=== PATIENT | female | born 1975 | race Caucasian/White ===

== ENCOUNTER 2016-07-10 06:31 | Inpatient (IN) | payer OTHER ==
[~2016-07-10] VITALS: Ht 157.5 cm; Wt 46.0 kg
[2016-07-10] MEDS ORDERED: FENTANYL PF 250 MCG/5ML ONE (07:20)
[2016-07-10] MEDS ORDERED: MIDAZOLAM 1 MG/ML, 5ML ONE (07:20)
[2016-07-10] MEDS ORDERED: SUMA100T3 PO (07:31)
[2016-07-10] MEDS ORDERED: GABA100C8 PO (07:33)
[2016-07-10] MEDS ORDERED: DIAZ5TAB PO (07:34)
[2016-07-10] MEDS ORDERED: HYOS0.1261 SL (07:36)
[2016-07-10] MEDS ORDERED: TOPI200T25 PO (07:37)
[2016-07-10] MEDS ORDERED: FLUD5POW PO (07:40)
[2016-07-10] MEDS ORDERED: MIDO2.5T PO (07:41)
[2016-07-10] MEDS ORDERED: BUPR-173 PO (07:42)
[2016-07-10] MEDS ORDERED: LEVO100V PO (07:45)
[2016-07-10] MEDS ORDERED: vit d PO (07:46)
[2016-07-10] MEDS ORDERED: multivit PO (07:47)
[2016-07-10 07:55] VITALS: BP 112/75
[2016-07-10] MEDS ORDERED: DEXAMETHASONE 4 MG/ML, 1ML ONE (08:00)
[2016-07-10] MEDS ORDERED: PROTAMINE SULFATE 10 MG/ML, 5ML ONE (08:00)
[2016-07-10] MEDS ORDERED: LIDOCAINE 2%, 20ML ONE (08:10)
[2016-07-10] MEDS ORDERED: CEFAZOLIN PMX 1GM/50ML 50 ML ONE (08:10)
[2016-07-10] MEDS ORDERED: CEFAZOLIN 1,000 MG ONE (08:10)
[2016-07-10] MEDS ORDERED: AMINOCAPROIC ACID 250 MG/ML, 20ML ONE ×2 (10:20→16:05)
[2016-07-10] MEDS ORDERED: CEFUROXIME 1.5 GM in SODIUM CHLORIDE 0.9% 50 ML IV SCH (11:30)
[2016-07-10] MEDS ORDERED: VANCOMYCIN PMX 1GM/200ML 200 ML IV ONE (11:30)
[2016-07-10] MEDS ORDERED: THROMBIN 5,000 UNIT VIAL TP ONE ×2 (12:07→13:00)
[2016-07-10] MEDS ORDERED: SODIUM BICARBONATE 1 MEQ/ML, 50ML VIAL ONE ×2 (12:26→16:06)
[2016-07-10] MEDS ORDERED: MIDAZOLAM 10MG/2 ML ONE (13:04)
[2016-07-10] MEDS ORDERED: FENTANYL PF 1000 MCG/20ML ONE (13:04)
[2016-07-10] MEDS ORDERED: SODIUM CHLORIDE 0.9% IV ONE (13:30)
[2016-07-10] MEDS ORDERED: POTASSIUM PHOSPHATE IV ONE (13:30)
[2016-07-10] MEDS ORDERED: NOVOSEVEN RT (FACTOR VIIA) RECOMB 1,000 MCG ONE (14:15)
[2016-07-10] MEDS ORDERED: SODIUM CHLORIDE 0.9% 1,000 ML IV ONE (15:36)
[2016-07-10] MEDS ORDERED: PHENYLEPHRINE 10 MG in SODIUM CHLORIDE 0.9% 249 ML IV PRN (15:36)
[2016-07-10] MEDS ORDERED: DOBUTAMINE 250 MG in SODIUM CHLORIDE 0.9% 230 ML IV PRN (15:36)
[2016-07-10] MEDS ORDERED: REGULAR INSULIN 62.5 UNITS in SODIUM CHLORIDE 0.9% 249.375 ML IV PRN (15:36)
[2016-07-10] MEDS ORDERED: NITROGLYCERIN/D5W PMX 250 ML IV PRN (15:36)
[2016-07-10] MEDS ORDERED: SODIUM CHLORIDE 0.9% 1,000 ML IV PRN (15:36)
[2016-07-10 15:45] VITALS: BP 166/100
[2016-07-10] MEDS ORDERED: PROCHLORPERAZINE 5 MG/ML, 2ML IVPush PRN (16:00)
[2016-07-10] MEDS: KSCALE TO 4.5 IV SCH ×2 (16:00→22:00)
[2016-07-10] MEDS ORDERED: ACETAMINOPHEN 650 MG SUPP PR PRN (16:00)
[2016-07-10] MEDS ORDERED: BISACODYL 5 MG EC TABLET PO PRN (16:00)
[2016-07-10] MEDS ORDERED: CEFUROXIME 1.5 GM in SODIUM CHLORIDE 0.9% 50 ML IVPB SCH (16:00)
[2016-07-10] MEDS ORDERED: ACETAMINOPHEN 325 MG TABLET PO PRN (16:00)
[2016-07-10] MEDS ORDERED: EPINEPHRINE 2 MG in SODIUM CHLORIDE 0.9% 248 ML IV PRN (16:00)
[2016-07-10] MEDS ORDERED: GLUCAGON 1 MG IM PRN (16:00)
[2016-07-10] MEDS ORDERED: INSULIN ASPART 100 UNITS/ML, PEN SQ-INSULIN PRN (16:00)
[2016-07-10] MEDS ORDERED: VANCOMYCIN 700 MG in SODIUM CHLORIDE 0.9% 100 ML IVPB SCH (16:00)
[2016-07-10] MEDS ORDERED: LACTATED RINGERS 500 ML IVBOLUS PRN (16:00)
[2016-07-10] MEDS ORDERED: DEXTROSE 4 GM TAB.CHEW PO PRN (16:00)
[2016-07-10] MEDS ORDERED: MIDAZOLAM 1 MG/ML, 5ML IVPush PRN (16:00)
[2016-07-10] MEDS ORDERED: SODIUM BICARB 8.4%, 50ML SYRINGE IV PRN (16:00)
[2016-07-10] MEDS ORDERED: MEPERIDINE/PF 25MG/0.5ML IVPush PRN (16:00)
[2016-07-10] MEDS ORDERED: VANCOMYCIN 700 MG in SODIUM CHLORIDE 0.9% 250 ML IVPB SCH (16:00)
[2016-07-10] MEDS ORDERED: PROTAMINE SULFATE 10 MG/ML, 25ML ONE (16:04)
[2016-07-10] MEDS ORDERED: SODIUM BICARB 8.4%, 50ML SYRINGE ONE (16:04)
[2016-07-10] MEDS ORDERED: CALCIUM CHLORIDE 10%, 10ML SYR ONE (16:04)
[2016-07-10] MEDS ORDERED: ALBUMIN HUMAN 25% 50 ML ONE (16:06)
[2016-07-10] MEDS ORDERED: HEPARIN 1,000 UNITS/ML, 10ML ONE (16:06)
[2016-07-10] MEDS ORDERED: HEPARIN 1,000 UNITS/ML, 30ML ONE (16:06)
[2016-07-10] MEDS ORDERED: PAPAVERINE 30 MG/ML, 2ML ONE (16:06)
[2016-07-10] MEDS: MAGNESIUM SULFATE 1 GM in SODIUM CHLORIDE 0.9% 50 ML IVPB SCH (16:14)
[2016-07-10] MEDS: CLEVIDIPINE 50 ML IV PRN ×2 (16:15→19:44)
[2016-07-10 16:23] LABS: HEMOGLOBIN 12.5 g/dL (11.7-16.4)
[2016-07-10 16:24] LABS: ABG COLLECTION SITE ARTERIAL LINE
[2016-07-10] MEDS ORDERED: NOVOSEVEN RT (FACTOR VIIA) RECOMB 1,000 MCG IVPush SCH ×2 (16:30→18:30)
[2016-07-10 16:34] LABS: BLOOD UREA NITROGEN 14 mg/dL (7-18)
[2016-07-10] MEDS: DEXTROSE 50%, 50ML SYRINGE IVPush PRN (16:39)
[2016-07-10 16:43] LABS: ASPARTATE AMINO TRANSFERASE 117 U/L (15-37)
[2016-07-10] MEDS ORDERED: PHARMACOKINETIC MONITORING MC PRN (17:00)
[2016-07-10] MEDS ORDERED: PHARMACOKINETIC CONSULTATION MC ONE (17:00)
[2016-07-10] MEDS ORDERED: VANCOMYCIN PER PHARMACY MC PRN (17:00)
[2016-07-10] MEDS: CEFUROXIME 1.5 GM in SODIUM CHLORIDE 0.9% 50 ML IV SCH ×2 (17:30→22:43)
[2016-07-10] MEDS ORDERED: LIDOCAINE-MPF 1%, 2ML ENDO PRN (17:30)
[2016-07-10] MEDS: morphine SULFATE 10 MG/ML, 1ML IVPush PRN ×3 (18:42→21:12)
[2016-07-10] MEDS ORDERED: POTASSIUM CHLORIDE PMX 100 ML IV ONE (19:00)
[2016-07-10] MEDS ORDERED: FUROSEMIDE 20 MG/2 ML IV PRN (19:30)
[2016-07-10] MEDS: DEXMEDETOMIDINE 200 MCG in SODIUM CHLORIDE 0.9% 48 ML IV PRN (19:43)
[2016-07-10] MEDS: DOCUSATE 100 MG CAPSULE PO SCH (21:00)
[2016-07-10] MEDS: SODIUM CHLORIDE FLUSH 10ML SYR IVF SCH (21:05)
[2016-07-10] MEDS: MUPIROCIN OINT 2%, 22GM NAS SCH (22:08)
[2016-07-10 22:38] LABS: HEMOGLOBIN 15.5 g/dL (11.7-16.4)
[2016-07-10] MEDS ORDERED: POTASSIUM CHLORIDE 30 MEQ in SODIUM CHLORIDE 0.9% 100 ML IV ONE (23:00)
[2016-07-10] MEDS: VANCOMYCIN PMX 1GM/200ML 200 ML IV SCH (23:18)
[2016-07-11] MEDS: DEXMEDETOMIDINE 200 MCG in SODIUM CHLORIDE 0.9% 48 ML IV PRN (00:48)
[2016-07-11] MEDS: morphine SULFATE 10 MG/ML, 1ML IVPush PRN ×5 (01:56→23:59)
[2016-07-11] MEDS: KSCALE TO 4.5 IV SCH ×3 (04:00→16:00)
[2016-07-11 04:26] LABS: ABG COLLECTION SITE ARTERIAL LINE; HEMOGLOBIN 14.3 g/dL (11.7-16.4)
[2016-07-11] MEDS: ONDANSETRON 2MG/ML, 2ML IVPush PRN ×2 (04:31→20:44)
[2016-07-11] MEDS: HYDROcodone/APAP 10/325 MG TABLET PO PRN ×2 (04:31→14:21)
[2016-07-11 04:38] LABS: BLOOD UREA NITROGEN 16 mg/dL (7-18)
[2016-07-11] MEDS ORDERED: POTASSIUM CHLORIDE 30 MEQ in SODIUM CHLORIDE 0.9% 100 ML IV ONE (05:00)
[2016-07-11] MEDS ORDERED: FUROSEMIDE 40 MG/4 ML IV ONE (07:30)
[2016-07-11] MEDS: DOCUSATE 100 MG CAPSULE PO SCH ×2 (09:00→20:44)
[2016-07-11] MEDS: SODIUM CHLORIDE FLUSH 10ML SYR IVF SCH ×2 (09:19→20:45)
[2016-07-11] MEDS: PANTOPRAZOLE 40 MG IV IVPush SCH (09:20)
[2016-07-11] MEDS: MUPIROCIN OINT 2%, 22GM NAS SCH ×2 (09:20→20:45)
[2016-07-11] MEDS: CEFUROXIME 1.5 GM in SODIUM CHLORIDE 0.9% 50 ML IV SCH ×2 (09:21→18:11)
[2016-07-11 09:30] LABS: HEMOGLOBIN 14.6 g/dL (11.7-16.4)
[2016-07-11] MEDS ORDERED: [UNRECOGNIZED DRUG - REMARK] MC PRN (10:30)
[2016-07-11] MEDS ORDERED: HEPARIN 25,000 UNITS/500ML PMX 500 ML IV PRN (10:30)
[2016-07-11] MEDS ORDERED: POTASSIUM CHLORIDE PMX 100 ML IV ONE ×2 (11:00→11:30)
[2016-07-11] MEDS: VANCOMYCIN PMX 1GM/200ML 200 ML IV SCH ×2 (11:11→23:19)
[2016-07-11] MEDS: HEPARIN 25,000 UNITS/500ML PMX 500 ML IV PRN (15:08)
[2016-07-11] MEDS: MAGNESIUM SULFATE 1 GM in SODIUM CHLORIDE 0.9% 50 ML IVPB SCH (16:59)
[2016-07-11] MEDS: CHLORHEXIDINE MOUTHWASH 15 ML UDC MM SCH (16:59)
[2016-07-11] MEDS: OXYcodone IR 5MG TABLET PO PRN ×3 (17:35→23:37)
[2016-07-11] MEDS: DIPHENHYDRAMINE 25 MG CAPSULE PO PRN (23:37)
[2016-07-12] MEDS: CEFUROXIME 1.5 GM in SODIUM CHLORIDE 0.9% 50 ML IV SCH ×3 (01:19→17:55)
[2016-07-12] MEDS: DIPHENHYDRAMINE 25 MG CAPSULE PO PRN (01:21)
[2016-07-12] MEDS: OXYcodone IR 5MG TABLET PO PRN ×5 (03:52→20:57)
[2016-07-12] MEDS: CHLORHEXIDINE MOUTHWASH 15 ML UDC MM SCH ×2 (03:53→16:32)
[2016-07-12 04:52] LABS: ABG COLLECTION SITE RIGHT RADIAL; COLLATERAL CIRCULATION TESTING NORMAL
[2016-07-12 07:19] LABS: HEMOGLOBIN 12.6 g/dL (11.7-16.4)
[2016-07-12 07:25] LABS: ASPARTATE AMINO TRANSFERASE 197 U/L (15-37); BLOOD UREA NITROGEN 17 mg/dL (7-18)
[2016-07-12] MEDS: DOCUSATE 100 MG CAPSULE PO SCH ×2 (09:24→20:56)
[2016-07-12] MEDS: PANTOPRAZOLE 40 MG IV IVPush SCH (09:24)
[2016-07-12] MEDS: MUPIROCIN OINT 2%, 22GM NAS SCH ×2 (09:32→20:57)
[2016-07-12] MEDS: SODIUM CHLORIDE FLUSH 10ML SYR IVF SCH ×2 (09:52→20:56)
[2016-07-12] MEDS: KETOROLAC 30 MG/1 ML IM PRN ×3 (09:53→23:22)
[2016-07-12] MEDS: morphine SULFATE 10 MG/ML, 1ML IVPush PRN ×2 (11:06→17:37)
[2016-07-12] MEDS: VANCOMYCIN PMX 1GM/200ML 200 ML IV SCH ×2 (11:09→23:29)
[2016-07-12] MEDS ORDERED: LEVO88CA2 PO (15:21)
[2016-07-12] MEDS: MAGNESIUM SULFATE 1 GM in SODIUM CHLORIDE 0.9% 50 ML IVPB SCH (16:32)
[2016-07-12] MEDS: HEPARIN 5,000 UNITS/ML, 1ML IV PRN (21:36)
[2016-07-13] MEDS: CEFUROXIME 1.5 GM in SODIUM CHLORIDE 0.9% 50 ML IV SCH ×3 (01:44→17:56)
[2016-07-13] MEDS: HEPARIN 25,000 UNITS/500ML PMX 500 ML IV PRN (01:52)
[2016-07-13] MEDS: OXYcodone IR 5MG TABLET PO PRN ×5 (03:14→20:21)
[2016-07-13] MEDS: CHLORHEXIDINE MOUTHWASH 15 ML UDC MM SCH (03:21)
[2016-07-13 04:17] LABS: BLOOD UREA NITROGEN 7 mg/dL (7-18)
[2016-07-13 04:21] LABS: ASPARTATE AMINO TRANSFERASE 85 U/L (15-37)
[2016-07-13 04:28] LABS: HEMOGLOBIN 12.9 g/dL (11.7-16.4)
[2016-07-13] MEDS: HEPARIN 5,000 UNITS/ML, 1ML IV PRN ×2 (04:58→11:04)
[2016-07-13] MEDS ORDERED: POTASSIUM CHLORIDE 20 MEQ TAB.ER.PRT PO ONE ×2 (07:30→08:30)
[2016-07-13] MEDS: DOCUSATE 100 MG CAPSULE PO SCH ×2 (07:36→20:25)
[2016-07-13] MEDS: KETOROLAC 30 MG/1 ML IV PRN ×3 (07:37→21:53)
[2016-07-13] MEDS: PANTOPRAZOLE 40 MG IV IVPush SCH (07:37)
[2016-07-13] MEDS: MUPIROCIN OINT 2%, 22GM NAS SCH ×2 (07:37→20:25)
[2016-07-13] MEDS: SODIUM CHLORIDE FLUSH 10ML SYR IVF SCH ×2 (07:38→20:25)
[2016-07-13] MEDS ORDERED: CLOPIDOGREL 75 MG TABLET PO ONE (08:30)
[2016-07-13] MEDS ORDERED: WARFARIN HIGH DOSE PROTOCOL XX PRN (09:00)
[2016-07-13] MEDS: BUPROPION 75 MG TABLET PO SCH (09:30)
[2016-07-13] MEDS: TOPIRAMATE 100 MG TABLET PO SCH (09:30)
[2016-07-13] MEDS ORDERED: LEVOTHYROXINE 175 MCG TABLET PO SCH (09:30)
[2016-07-13] MEDS: CHOLECALCIFEROL 400 UNITS TABLET PO SCH (09:30)
[2016-07-13] MEDS ORDERED: DIAZEPAM 5 MG TABLET PO PRN (09:30)
[2016-07-13] MEDS: GABAPENTIN 300 MG CAPSULE PO SCH ×2 (09:30→20:24)
[2016-07-13] MEDS: VANCOMYCIN PMX 1GM/200ML 200 ML IV SCH ×2 (11:08→23:01)
[2016-07-13] MEDS ORDERED: WARFARIN 10 MG TABLET PO-COUM ONE (13:00)
[2016-07-14 00:13] LABS: HEMOGLOBIN 11.8 g/dL (11.7-16.4)
[2016-07-14] MEDS: HEPARIN 25,000 UNITS/500ML PMX 500 ML IV PRN ×2 (00:38→20:27)
[2016-07-14] MEDS: CEFUROXIME 1.5 GM in SODIUM CHLORIDE 0.9% 50 ML IV SCH ×3 (00:39→17:53)
[2016-07-14] MEDS: KETOROLAC 30 MG/1 ML IV PRN (04:21)
[2016-07-14 04:59] LABS: HEMOGLOBIN 11.3 g/dL (11.7-16.4)
[2016-07-14 05:00] LABS: DIFF TOTAL CELLS COUNTED 100 CELL DIFF
[2016-07-14 05:01] LABS: BLOOD UREA NITROGEN 3 mg/dL (7-18)
[2016-07-14 05:47] LABS: VERIFY COUNTS? YES
[2016-07-14] MEDS ORDERED: MAGNESIUM SULFATE PMX 4GM/100M 100 ML IV ONE (07:00)
[2016-07-14] MEDS ORDERED: POTASSIUM CHLORIDE 20 MEQ TAB.ER.PRT PO ONE (07:00)
[2016-07-14] MEDS: OXYcodone IR 5MG TABLET PO PRN ×2 (08:07→17:51)
[2016-07-14] MEDS: SODIUM CHLORIDE FLUSH 10ML SYR IVF SCH ×2 (08:10→18:25)
[2016-07-14] MEDS: TIROSINT HOMEMEDPO SCH (09:00)
[2016-07-14] MEDS: DOCUSATE 100 MG CAPSULE PO SCH ×2 (09:13→20:22)
[2016-07-14] MEDS: GABAPENTIN 300 MG CAPSULE PO SCH ×2 (09:21→20:22)
[2016-07-14] MEDS: CLOPIDOGREL 75 MG TABLET PO SCH (09:21)
[2016-07-14] MEDS: CHOLECALCIFEROL 400 UNITS TABLET PO SCH (09:22)
[2016-07-14] MEDS: TOPIRAMATE 100 MG TABLET PO SCH (09:22)
[2016-07-14] MEDS: BUPROPION 75 MG TABLET PO SCH (09:22)
[2016-07-14] MEDS ORDERED: MICROFIBRILLAR COLLAGEN 0.5GM/PACK TP ONE (11:30)
[2016-07-14] MEDS: MUPIROCIN OINT 2%, 22GM NAS SCH ×2 (11:52→20:23)
[2016-07-14 12:28] LABS: HEMOGLOBIN 9.2 g/dL (11.7-16.4)
[2016-07-14] MEDS ORDERED: NOREPINEPHRINE 4 MG in SODIUM CHLORIDE 0.9% 246 ML IV PRN (12:30)
[2016-07-14] MEDS ORDERED: SODIUM CHLORIDE 0.9% 1,000ML IVBOLUS ONE (12:30)
[2016-07-14 14:02] VITALS: BP 118/75
[2016-07-14 14:15] VITALS: BP 124/68
[2016-07-14 14:30] VITALS: BP 139/78
[2016-07-14 15:30] VITALS: BP 134/75
[2016-07-14 16:00] VITALS: BP 130/86
[2016-07-14] MEDS: VANCOMYCIN PMX 1GM/200ML 200 ML IV SCH (16:53)
[2016-07-14] MEDS ORDERED: WARFARIN 5 MG TABLET PO-COUM ONE (18:00)
[2016-07-14] MEDS ORDERED: WARFARIN 7.5 MG TABLET PO-COUM ONE (18:00)
[2016-07-14 19:04] LABS: HEMOGLOBIN 11.4 g/dL (11.7-16.4)
[2016-07-15] MEDS: CEFUROXIME 1.5 GM in SODIUM CHLORIDE 0.9% 50 ML IV SCH ×2 (00:18→09:41)
[2016-07-15] MEDS: VANCOMYCIN PMX 1GM/200ML 200 ML IV SCH (00:18)
[2016-07-15] MEDS: OXYcodone IR 5MG TABLET PO PRN ×4 (04:01→21:19)
[2016-07-15 07:05] LABS: HEMOGLOBIN 10.1 g/dL (11.7-16.4)
[2016-07-15 07:17] LABS: BLOOD UREA NITROGEN 3 mg/dL (7-18)
[2016-07-15] MEDS: HEPARIN 5,000 UNITS/ML, 1ML IV PRN (08:12)
[2016-07-15] MEDS: TIROSINT HOMEMEDPO SCH (08:30)
[2016-07-15] MEDS: SODIUM CHLORIDE FLUSH 10ML SYR IVF SCH ×2 (08:31→21:19)
[2016-07-15] MEDS: MUPIROCIN OINT 2%, 22GM NAS SCH (08:31)
[2016-07-15] MEDS: CLOPIDOGREL 75 MG TABLET PO SCH (08:32)
[2016-07-15] MEDS: GABAPENTIN 300 MG CAPSULE PO SCH ×2 (08:32→21:43)
[2016-07-15] MEDS: DOCUSATE 100 MG CAPSULE PO SCH ×2 (08:32→21:43)
[2016-07-15] MEDS: CHOLECALCIFEROL 400 UNITS TABLET PO SCH (08:33)
[2016-07-15] MEDS: BUPROPION 75 MG TABLET PO SCH (08:33)
[2016-07-15] MEDS: TOPIRAMATE 100 MG TABLET PO SCH (08:33)
[2016-07-15] MEDS ORDERED: LIDOCAINE 1%, 50ML ONE (13:43)
[2016-07-15] MEDS: DIPHENHYDRAMINE 25 MG CAPSULE PO PRN (14:55)
[2016-07-15] MEDS ORDERED: HEPARIN 25,000 UNITS/500ML PMX 500 ML IV PRN (15:00)
[2016-07-15] MEDS: BISACODYL 10 MG SUPP PR PRN (19:28)
[2016-07-16] MEDS: DIPHENHYDRAMINE 25 MG CAPSULE PO PRN ×2 (00:38→21:20)
[2016-07-16] MEDS: OXYcodone IR 5MG TABLET PO PRN ×3 (04:21→17:26)
[2016-07-16 04:56] LABS: BLOOD UREA NITROGEN 5 mg/dL (7-18)
[2016-07-16] MEDS: TIROSINT HOMEMEDPO SCH (06:00)
[2016-07-16] MEDS: CLOPIDOGREL 75 MG TABLET PO SCH (09:07)
[2016-07-16] MEDS: CHOLECALCIFEROL 400 UNITS TABLET PO SCH (09:07)
[2016-07-16] MEDS: DOCUSATE 100 MG CAPSULE PO SCH ×2 (09:08→21:20)
[2016-07-16] MEDS: TOPIRAMATE 100 MG TABLET PO SCH (09:08)
[2016-07-16] MEDS: GABAPENTIN 300 MG CAPSULE PO SCH ×2 (09:08→21:20)
[2016-07-16] MEDS: BUPROPION 75 MG TABLET PO SCH (09:08)
[2016-07-16] MEDS: SODIUM CHLORIDE FLUSH 10ML SYR IVF SCH ×2 (09:09→21:19)
[2016-07-16 11:00] VITALS: BP 132/86
[2016-07-16] MEDS ORDERED: HYOSCYAMINE 0.125 MG TAB.SUBL SL PRN (12:00)
[2016-07-16] MEDS ORDERED: SUMATRIPTAN 50 MG TABLET PO PRN (12:00)
[2016-07-16 16:09] VITALS: BP 127/83
[2016-07-16] MEDS ORDERED: WARFARIN 2.5 MG TABLET PO-COUM ONE (18:00)
[2016-07-16 19:40] VITALS: BP 112/73
[2016-07-17 01:57] VITALS: BP 115/77
[2016-07-17] MEDS: OXYcodone IR 5MG TABLET PO PRN ×3 (04:49→21:56)
[2016-07-17 05:48] LABS: BLOOD UREA NITROGEN 8 mg/dL (7-18)
[2016-07-17] MEDS: TIROSINT HOMEMEDPO SCH (06:00)
[2016-07-17 07:22] VITALS: BP 149/75
[2016-07-17] MEDS: CHOLECALCIFEROL 400 UNITS TABLET PO SCH (08:28)
[2016-07-17] MEDS: TOPIRAMATE 100 MG TABLET PO SCH (08:28)
[2016-07-17] MEDS: CLOPIDOGREL 75 MG TABLET PO SCH (08:28)
[2016-07-17] MEDS: MULTIVITAMIN 1 TABLET PO SCH (08:28)
[2016-07-17] MEDS: DOCUSATE 100 MG CAPSULE PO SCH ×2 (08:29→21:00)
[2016-07-17] MEDS: FLUDROCORTISONE 0.1 MG TABLET PO SCH (08:31)
[2016-07-17] MEDS: GABAPENTIN 300 MG CAPSULE PO SCH ×2 (08:31→21:00)
[2016-07-17] MEDS: MIDODRINE 2.5 MG TABLET PO SCH (08:31)
[2016-07-17] MEDS: BUPROPION 75 MG TABLET PO SCH (08:32)
[2016-07-17] MEDS: SODIUM CHLORIDE FLUSH 10ML SYR IVF SCH ×2 (08:35→21:56)
[2016-07-17 09:56] VITALS: BP 117/77
[2016-07-17] MEDS ORDERED: KETOROLAC 30 MG/1 ML IVPush ONE (10:00)
[2016-07-17 13:53] VITALS: BP 113/69
[2016-07-17] MEDS: BISACODYL 10 MG SUPP PR PRN (17:39)
[2016-07-17] MEDS ORDERED: WARFARIN 2.5 MG TABLET PO-COUM ONE (18:00)
[2016-07-17 20:00] VITALS: BP 117/73
[2016-07-17] MEDS: ONDANSETRON 2MG/ML, 2ML IVPush PRN (21:56)
[2016-07-18 01:41] VITALS: BP 113/70
[2016-07-18] MEDS: OXYcodone IR 5MG TABLET PO PRN ×2 (03:21→09:43)
[2016-07-18] MEDS: TIROSINT HOMEMEDPO SCH (05:14)
[2016-07-18 06:23] LABS: BLOOD UREA NITROGEN 8 mg/dL (7-18)
[2016-07-18 07:08] VITALS: BP 105/70
[2016-07-18] MEDS: MULTIVITAMIN 1 TABLET PO SCH (09:39)
[2016-07-18] MEDS: CHOLECALCIFEROL 400 UNITS TABLET PO SCH (09:39)
[2016-07-18] MEDS: DOCUSATE 100 MG CAPSULE PO SCH ×2 (09:40→20:45)
[2016-07-18] MEDS: SODIUM CHLORIDE FLUSH 10ML SYR IVF SCH ×2 (09:40→20:47)
[2016-07-18] MEDS: FLUDROCORTISONE 0.1 MG TABLET PO SCH (09:41)
[2016-07-18] MEDS: MIDODRINE 2.5 MG TABLET PO SCH ×2 (09:41→12:22)
[2016-07-18] MEDS: GABAPENTIN 300 MG CAPSULE PO SCH ×2 (09:41→20:45)
[2016-07-18] MEDS: CLOPIDOGREL 75 MG TABLET PO SCH (09:41)
[2016-07-18] MEDS: BUPROPION 75 MG TABLET PO SCH (09:42)
[2016-07-18] MEDS: TOPIRAMATE 100 MG TABLET PO SCH (09:42)
[2016-07-18] MEDS: ONDANSETRON 2MG/ML, 2ML IVPush PRN (09:43)
[2016-07-18 14:02] VITALS: BP 123/84
[2016-07-18] MEDS ORDERED: WARFARIN 7.5 MG TABLET PO-COUM ONE (18:00)
[2016-07-18] MEDS ORDERED: WARFARIN 3 MG TABLET PO-COUM ONE (18:00)
[2016-07-18 20:30] VITALS: BP 104/69
[2016-07-18] MEDS: DIPHENHYDRAMINE 25 MG CAPSULE PO PRN (22:11)
[2016-07-19 02:10] VITALS: BP 112/75
[2016-07-19 06:12] LABS: BLOOD UREA NITROGEN 10 mg/dL (7-18)
[2016-07-19 06:58] VITALS: BP 120/72
[2016-07-19] MEDS: TIROSINT HOMEMEDPO SCH (08:00)
[2016-07-19] MEDS: SODIUM CHLORIDE FLUSH 10ML SYR IVF SCH (09:00)
[2016-07-19] MEDS: CHOLECALCIFEROL 400 UNITS TABLET PO SCH (09:43)
[2016-07-19] MEDS: FLUDROCORTISONE 0.1 MG TABLET PO SCH (09:44)
[2016-07-19] MEDS: CLOPIDOGREL 75 MG TABLET PO SCH (09:44)
[2016-07-19] MEDS: GABAPENTIN 300 MG CAPSULE PO SCH (09:44)
[2016-07-19] MEDS: MIDODRINE 2.5 MG TABLET PO SCH (09:45)
[2016-07-19] MEDS: DOCUSATE 100 MG CAPSULE PO SCH (09:45)
[2016-07-19] MEDS: MULTIVITAMIN 1 TABLET PO SCH (09:45)
[2016-07-19] MEDS: BUPROPION 75 MG TABLET PO SCH (09:46)
[2016-07-19] MEDS: TOPIRAMATE 100 MG TABLET PO SCH (09:53)
[2016-07-19] MEDS ORDERED: CLOP75TA PO (13:16)
[2016-07-19] MEDS ORDERED: OXYC5TAB3 PO (13:18)
[2016-07-19] MEDS ORDERED: WARF3TAB7 PO (13:18)
[2016-07-19] MEDS ORDERED: TRAM50TA2 PO (13:19)
[2016-07-19] MEDS: OXYcodone IR 5MG TABLET PO PRN (13:27)
[2016-07-19 13:56] VITALS: BP 132/80
[2016-07-19] MEDS ORDERED: WARFARIN 3 MG TABLET PO-COUM ONE (18:00)
== END 2016-07-19 15:40 | disposition home health service (06) | DRG 270 ==
LOC: CACL 06:31 → CCU 15:36 → 5SO 07-16 10:43
PROVIDERS: ADMIT Internal Medicine Cardiovascular Disease; ATTEND Internal Medicine Cardiovascular Disease
PROC: 0JPT0PZ Removal of Cardiac Rhythm Related Device from Trunk Subcutaneous Tissue and Fascia, Open Approach (ICD-10-PCS; 2016-07-10)
PROC: 5A12012 Performance of Cardiac Output, Single, Manual (ICD-10-PCS; 2016-07-10)
PROC: 5A1221Z Performance of Cardiac Output, Continuous (ICD-10-PCS; 2016-07-10)
PROC: B246ZZ4 Ultrasonography of Right and Left Heart, Transesophageal (ICD-10-PCS; 2016-07-10)
PROC: 02PA3MZ Removal of Cardiac Lead from Heart, Percutaneous Approach (ICD-10-PCS; 2016-07-10)
PROC: 02PA0MZ Removal of Cardiac Lead from Heart, Open Approach (ICD-10-PCS; 2016-07-10)
PROC: 30233N1 Transfusion of Nonautologous Red Blood Cells into Peripheral Vein, Percutaneous Approach (ICD-10-PCS; 2016-07-10)
PROC: 6A551Z2 Pheresis of Platelets, Multiple (ICD-10-PCS; 2016-07-10)
PROC: 6A551Z3 Pheresis of Plasma, Multiple (ICD-10-PCS; 2016-07-10)
PROC: 5A1935Z Respiratory Ventilation, Less than 24 Consecutive Hours (ICD-10-PCS; 2016-07-10)
PROC: 0BH17EZ Insertion of Endotracheal Airway into Trachea, Via Natural or Artificial Opening (ICD-10-PCS; 2016-07-10)
PROC: 02U Heart and Great Vessels, Supplement (ICD-10-PCS; 2016-07-10)
PROC: 05U Upper Veins, Supplement (ICD-10-PCS; 2016-07-10)
PROC: 02BN0ZZ Excision of Pericardium, Open Approach (ICD-10-PCS; principal; 2016-07-10 09:00)
DX: T82.118A Breakdown (mechanical) of other cardiac electronic device, initial encounter (principal); I46.9 Cardiac arrest, cause unspecified; J96.00 Acute respiratory failure, unspecified whether with hypoxia or hypercapnia; S25 Injury of blood vessels of thorax; S25.311A Minor laceration of right innominate or subclavian vein, initial encounter; I31.4 Cardiac tamponade; I82.622 Acute embolism and thrombosis of deep veins of left upper extremity; S27.893A Laceration of other specified intrathoracic organs, initial encounter; E03.9 Hypothyroidism, unspecified; E11.9 Type 2 diabetes mellitus without complications; I10 Essential (primary) hypertension; I49.8 Other specified cardiac arrhythmias; K90.0 Celiac disease; Z87.891 Personal history of nicotine dependence; Z88.1 Allergy status to other antibiotic agents; Z88.8 Allergy status to other drugs, medicaments and biological substances; Y92.89 Other specified places as the place of occurrence of the external cause; I95.9 Hypotension, unspecified
CPT/HCPCS: 33233; 33234; 36415; 36600; 71010; 80048; 80053; 82040; 82330; 82800; 82803; 82810; 82947; 82962; 83735; 84132; 84295; 84478; 85014; 85018; 85025; 85049; 85260; 85347; 85520; 85610; 85651; 85730; 86140; 86850; 86900; 86923; 87040; 87070; 87081; 87205; 88300; 93005; 93312; 93321; 93325; 94002; 94003; 94150; C1760; J0690; J0697; J1100; J1644; J1885; J1940; J2250; J2405; J2720; J3010; J3370; J3475; J3480; J3490; J7189; P9047; C1781; C9113; C9248; J2270; J2440; P9012; P9016; P9017; P9035; Q0163

== ENCOUNTER 2016-08-24 13:12 | Emergency (ER) | payer OTHER ==
[~2016-08-24] VITALS: Ht 160 cm; Wt 43.9 kg
[~2016-08-24 13:12] MED LIST: BUPR-173 PO; CLOP75TA PO; DIAZ5TAB PO; FLUD5POW PO; GABA100C8 PO; HYOS0.1261 SL; LEVO100V PO; LEVO88CA2 PO; MIDO2.5T PO; OXYC5TAB3 PO; SUMA100T3 PO; TOPI200T25 PO; TRAM50TA2 PO; WARF3TAB7 PO; multivit PO; vit d PO
[2016-08-24] MEDS ORDERED: SODIUM CHLORIDE FLUSH 10ML SYR IVF ONE (14:30)
[2016-08-24 15:27] LABS: BLOOD UREA NITROGEN 10 mg/dL (7-18)
[2016-08-24 16:33] LABS: ASPARTATE AMINO TRANSFERASE 30 U/L (15-37)
[2016-08-24] MEDS ORDERED: SODIUM CHLORIDE 0.9%, 500ML IVBOLUS ONE (18:30)
[2016-08-24 19:40] VITALS: BP 135/87
[2016-08-27 17:06] LABS: FACTOR II DNA ANALYSIS Negative (.)
[2016-08-28 11:06] LABS: DILUTE PROTHROMBIN TIME (DPT) 117.7 sec (0.0-55.0); DILUTE RUSSELL'S VIPER VENOM 62.4 sec (0.0-44.0); LUPUS REFLEX INTERPRETATION Comment: (.); PTT-LA 59.4 sec (0.0-43.6); PTT-LA MIX 43.4 sec (0.0-40.6)
== END 2016-08-24 19:43 | disposition home or self-care (01) ==
LOC: ED 14:16
DX: I73.00 Raynaud's syndrome without gangrene (principal); I77.1 Stricture of artery; M79.671 Pain in right foot
CPT/HCPCS: 36415; 71260; 74177; 80053; 81240; 81241; 85025; 85300; 85303; 85306; 85610; 85613; 85670; 85705; 85730; 85732; 86147; 93922; 93925; 93971; 96360; 99285; J7040